=== PATIENT | male | born 1990 | race Caucasian/White ===

== ENCOUNTER 2020-04-15 13:25 | Emergency (ER) | payer MEDICAID, SELFPAY ==
[2020-04-15 13:46] VITALS: BP 152/81; PULSE 97; RESP 16; TEMP 36.6; O2SAT 98; BMI 28.3
--- NOTE | 2020-04-15 14:17 | ED.BACK ---
HPI - Back Pain/Injury General Chief Complaint: Back Pain/Injury Stated Complaint: back & leg pain Time Seen by Provider: 04/15/20 14:17 History of Present Illness HPI Narrative: Patient complains of pain in the left side of his back which is been present for 2 weeks but got worse over the last couple of days, there is no injury, there is no numbness or weakness, no change to bowel or bladder, the pain does radiate to the left lower leg, it is worse with movement, no fever no chills The pain is moderate Related Data Previous Rx's Medication Instructions Recorded cyclobenzaprine 5 mg PO TID PRN #14 tab 04/15/20 ibuprofen 600 mg PO Q6H PRN #20 tab 04/15/20 oxycodone-acetaminophen [Percocet] 1 - 2 tab PO Q6H PRN #14 tab 04/15/20 prednisone 60 mg PO DAILY 4 Days #12 tab 04/15/20 Allergies Allergy/AdvReac Type Severity Reaction Status Date / Time SEASONAL ALLERGIES Allergy Mild RUNNY Uncoded 02/15/20 16:31 STUFF NOSE fragrance Allergy Unknown Uncoded 05/08/19 00:00 seasonal Allergy Unknown Uncoded 05/08/19 00:00 Review of Systems Review of Systems: There is no numbness or weakness no changes to bowel or bladder no neck pain no abdominal pain no chest pain no shortness of breath no rash [facility] Past Medical History Attestation statement: The following information was validated with the patient. [facility] Narrative: Patient has prior history of back pain in the past Social History Social History Advance Directives: No Advance Directives Information Provided: Yes Physical Exam Vital Signs: Vital Signs: Last Vital Signs Temp 97.8 F 04/15/20 13:46 Pulse 97 04/15/20 13:46 Resp 16 04/15/20 13:46 BP 152/81 H 04/15/20 13:46 Pulse Ox 98 04/15/20 13:46 Body Mass Index 28.3 Elevated blood pressure is noted General appearance no acute distress, A&O x3 Head is normocephalic atraumatic Neck is supple Chest is nontender, no respiratory distress The abdomen is soft and nontender The back as left lower lumbar tenderness, skin is normal, no focal bony tenderness and no CVA tenderness Course Course Course Narrative: Patient is treated for musculoskeletal back pain and discharge Discharge Plan Discharge Clinical Impression: Sciatica Qualifiers: Laterality: left Qualified Code(s): M54.32 - Sciatica, left side Patient Disposition: Home, Self-Care Additional Instructions: Follow with primary doctor, chiropractor and physical therapy are often helpful Prescriptions: New oxycodone-acetaminophen [Percocet] 5-325 mg tablet 1 - 2 tab PO Q6H PRN (Reason: pain) Qty: 14 RF: 0 ibuprofen 600 mg tablet 600 mg PO Q6H PRN (Reason: pain) Qty: 20 RF: 0 cyclobenzaprine 5 mg tablet 5 mg PO TID PRN (Reason: muscle spasm) Qty: 14 RF: 0 prednisone 20 mg tablet 60 mg PO DAILY 4 Days Qty: 12 RF: 0 Stand Alone Forms: Work/School Release
--- NOTE | 2020-04-15 14:37 | PC.NURSE ---
MANDI SAENZ ASSESSED AND REVIEWED DC INSTRUCTIONS WITH PT
== END 2020-04-15 14:30 | disposition home or self-care (01) ==
PROVIDERS: Emergency Provider Emergency Medicine; PCP Nurse Practitioner Family
DX: M54.32 Sciatica, left side (principal); M54.5 Low back pain; M79.605 Pain in left leg; M79.604 Pain in right leg; Z79.899 Other long term (current) drug therapy
CPT/HCPCS: 99282; 99283

== ENCOUNTER 2020-05-05 15:59 | Emergency (ER) | payer MEDICAID, SELFPAY ==
[2020-05-05 16:08] VITALS: BP 135/84; PULSE 110; RESP 16; TEMP 37.3; O2SAT 97; BMI 27.1
[2020-05-05] MEDS: Acetaminophen 325 MG TABLET 650 MG PO (16:43)
[2020-05-05] MEDS: Ketorolac Tromethamine 30 MG/ML VIAL IM (16:44)
--- NOTE | 2020-05-05 17:09 | ED.BACK ---
HPI - Back Pain/Injury General Chief Complaint: Back Pain/Injury Stated Complaint: KNEE INJURY Time Seen by Provider: 05/05/20 16:12 Source: patient and die caster Mode of arrival: ambulatory Limitations: language barrier History of Present Illness HPI Narrative: 30-year-old male no significant past medical history, Maori-speaking only presenting to the emergency department with left-sided back pain. He states he has left buttock pain that radiates down his left leg to his knee x2 months. Pain radiates down the posterior leg to the lateral aspect of his left knee. Pain worsened last night. He was seen in the ED on 04/15 and states he was given narcotics, muscle relaxant and pain medication has run out. He denies fall or injury. He works as a [employer] and does heavy lifting. He states he had a previous MRI approximately 3 years ago. He denies fevers, chest pain, shortness of breath, abdominal pain, dysuria, hematuria, testicular pain, scrotal swelling. He denies incontinence. Similar Symptoms Previously: Yes Related Data Previous Rx's Medication Instructions Recorded cyclobenzaprine 5 mg PO TID PRN #14 tab 04/15/20 ibuprofen 600 mg PO Q6H PRN #20 tab 04/15/20 oxycodone-acetaminophen [Percocet] 1 - 2 tab PO Q6H PRN #14 tab 04/15/20 prednisone 60 mg PO DAILY 4 Days #12 tab 04/15/20 cyclobenzaprine 5 mg PO TID PRN 5 Days #15 tab 05/05/20 ibuprofen 600 mg PO Q6H PRN 5 Days #20 tab 05/05/20 Allergies Allergy/AdvReac Type Severity Reaction Status Date / Time SEASONAL ALLERGIES Allergy Mild RUNNY Uncoded 02/15/20 16:31 STUFF NOSE fragrance Allergy Unknown Uncoded 05/08/19 00:00 seasonal Allergy Unknown Uncoded 05/08/19 00:00 Review of Systems Constitutional: Constitutional: Denies fever(s) Eyes: Eyes: Reports no additional eye complaints ENT: Denies dizziness and Denies neck pain Cardiovascular: Cardiovascular: Denies chest pain and Denies dyspnea Respiratory: Respiratory: Denies dyspnea Gastrointestinal: Gastrointestinal: Denies abdominal pain and Denies vomiting Genitourinary: Genitourinary: Denies hematuria, Denies flank pain, Denies scrotal swelling, Denies testicular pain and Denies urinary incontinence Musculoskeletal: Musculoskeletal: Denies deformity and Denies neck pain Neurologic: Denies dizziness and Denies focal weakness Hematologic/Lymphatic: Hematologic/Lymphatic: Denies easy bleeding Allergic/Immunologic: Allergic/Immunologic: Reports no additional allergic/immunologic complaints [facility] Past Medical History Medical History Asthma Surgical History H/O: knee surgery Social History Social History Use of substances other than those prescribed or required for medical reasons: No Advance Directives: No Advance Directives Information Provided: Yes Physical Exam Vital Signs: Vital Signs: Last Vital Signs Temp 99.2 F 05/05/20 16:08 Pulse 110 H 05/05/20 16:08 Resp 16 05/05/20 16:08 BP 135/84 05/05/20 16:08 Pulse Ox 97 05/05/20 16:08 Body Mass Index 27.1 Const: Other: Sitting upright at the edge of the stretcher General: cooperative and awake Orientation/consciousness: patient oriented x3 HENMT: Head: Yes atraumatic Eyes: Pupils: Equal, round and reactive pupils present Neck: Neck: Yes full ROM, Yes trachea midline and Yes supple Resp: Auscultation: clear to auscultation bilaterally Cardio: Rate: regular rate Rhythm: regular rhythm GI: Inspection: Yes normal to inspection and No distended Palpation (GI): Soft to palpation and nontender Back/Spine/Pelvis: Other: No midline tenderness of cervical, thoracic, lumbar tenderness, no CVA tenderness, tenderness to left buttock Skin: Rashes: no rashes Neuro: Other: Normal sensation, normal motor exam, ambulatory with a slow gait, able to flex and extend each joint in his lower extremities, positive left straight leg raise General: patient oriented x3 and no focal motor deficits Cranial nerves: Yes Equal, round and reactive pupils present Motor exam (neuro): 5/5 motor strength present throughout Extrem: Other: Previous scars from prior surgery noted to left knee, no swelling or deformities, no calf tenderness General: Yes normal to inspection MDM - Back Pain/Injury MDM Narrative Medical decision making narrative: 30-year-old male presenting to emergency department with left buttock pain radiating to his left leg Vital stable, nontoxic appearing, hemodynamically stable Pain seems to be sciatic in nature with positive left straight leg raise. He has no midline tenderness to suggest underlying fracture, no trauma noted. He denies IV drug use, afebrile. The concern for spinal epidural abscess. No red flags for cord compression or cauda equina. He has no abdominal tenderness to suggest intra-abdominal pathology. No CVA tenderness to suggest acute pyelonephritis. Denies symptoms to suggest UTI. Denies scrotal swelling or testicular pain. Lower suspicion for disc herniation as his sensation and motor function are intact. Patient was previously seen last month for similar symptoms. Will treat with NSAIDs, muscle relaxant. Discussed return precautions with him. Recommended he follow-up with his primary care doctor and if pain persist would warrant MRI imaging as an outpatient, no emergent indication for imaging at this time. Discharge Plan Discharge Clinical Impression: Sciatica Patient Disposition: Home, Self-Care Instructions: Sciatica (ED) Additional Instructions: Please call your primary care doctor for follow up, call tomorrow to schedule an appointment. Please return to the emergency department if your symptoms worsen, increased pain, difficulty walking, weakness, loss of bladder or bowel function, dizziness, or any other concerning symptoms. We are giving you a muscle relaxant called cyclobenzaprine which may make you drowsy do not drive or operate machinery while taking. Prescriptions: New ibuprofen 600 mg tablet 600 mg PO Q6H PRN (Reason: pain) 5 Days Qty: 20 RF: 0 cyclobenzaprine 5 mg tablet 5 mg PO TID PRN (Reason: muscle spasm) 5 Days Qty: 15 RF: 0 No Action oxycodone-acetaminophen [Percocet] 5-325 mg tablet 1 - 2 tab PO Q6H PRN (Reason: pain) Qty: 14 RF: 0 ibuprofen 600 mg tablet 600 mg PO Q6H PRN (Reason: pain) Qty: 20 RF: 0 cyclobenzaprine 5 mg tablet 5 mg PO TID PRN (Reason: muscle spasm) Qty: 14 RF: 0 prednisone 20 mg tablet 60 mg PO DAILY 4 Days Qty: 12 RF: 0 Interventions: ED Discharge Assessment Last Done: 05/05/20 16:49 Discharge Date/Time: 05/05/20 16:50 Print Language: Maori
== END 2020-05-05 16:50 | disposition home or self-care (01) ==
PROVIDERS: Emergency Provider Internal Medicine; PCP Nurse Practitioner Family
DX: M54.42 Lumbago with sciatica, left side (principal); M54.41 Lumbago with sciatica, right side; Z79.899 Other long term (current) drug therapy
CPT/HCPCS: 96372; 99283; 99284; J1885

== ENCOUNTER 2020-07-12 21:48 | Emergency (ER) | payer MEDICAID, SELFPAY ==
--- NOTE | 2020-07-12 | ECG_ITS ---
Test Reason : CHEST PAIN Blood Pressure : / mmHG Vent. Rate : 086 BPM Atrial Rate : 086 BPM P-R Int : 150 ms QRS Dur : 096 ms QT Int : 366 ms P-R-T Axes : 049 042 052 degrees QTc Int : 437 ms Normal sinus rhythm Minimal voltage criteria for LVH, may be normal variant Borderline ECG No previous ECGs available Referred By: Generic ED Physician Electronically Signed By:FITO CLINE MD
--- NOTE | ~2020-07-12 | XR_ITS ---
EXAMINATION: CHEST 2 VIEWS CLINICAL INFORMATION: CHEST PAIN . COMPARISON: No recent pertinent prior studies are available for comparison. TECHNIQUE: PA and lateral views of the chest obtained. FINDINGS: The lungs are mildly hypoexpanded. No focal infiltrate, effusion, edema, or pneumothorax. Cardiac and mediastinal silhouettes are within normal limits for technique. No acute bony abnormality seen XR/XR chest 2V IMPRESSION: No evidence of acute disease
[2020-07-12 21:57] VITALS: BP 103/70; PULSE 87; RESP 16; TEMP 36.9; O2SAT 99; BMI 27.1
[2020-07-13 00:12] VITALS: BP 152/91; PULSE 58; RESP 16; TEMP 36.8; O2SAT 98
== END 2020-07-13 00:36 | disposition left against medical advice (07) ==
PROVIDERS: Emergency Provider Emergency Medicine
DX: R07.9 Chest pain, unspecified (principal)
CPT/HCPCS: 71046; 93005; 99283

== ENCOUNTER → 2021-02-24 14:25 | Outpatient (BNVA) | payer MEDICAID, SELFPAY | PROVIDERS: PCP Internal Medicine; Referring Provider Internal Medicine; Visit Provider Internal Medicine | DX: R06.02 Shortness of breath (principal); R00.2 Palpitations; R07.2 Precordial pain | CPT/HCPCS: 93005; 99202 ==

== ENCOUNTER → 2021-03-07 08:29 | Outpatient (REF) | payer MEDICAID, SELFPAY ==
--- NOTE | 2021-03-07 08:33 | CA_ITS ---
Transthoracic Echocardiogram Patient (Last, First, Middle): Guille Liao, Gender: Male Date of : 1990 Age: 31 Procedure Date: 03/07/2021 Procedure Type: Transthoracic Echocardiogram Location: OP Height: 182.88 cm Weight: 93.44 kg BSA: 2.16 m2 Heart Rate: bpm BP: 124 / 68 mmHg Shellfish Dredge Operator: Referring MD: Young Baca MD Symptoms: R07.2 - Precordial pain R06.02 SOB Study Quality: Fair/ Definity used to r/o non Compaction ECG Rhythm: Sinus Conclusions: - The left ventricular systolic function is mildly decreased. The visually estimated ejection fraction is between 40-45%. - Diastolic function is normal for age. - Normal right ventricular cavity size and systolic function. Findings Procedure Information Contrast agent, definity, is being given per protocol without apparent complications. Left Ventricle Normal left ventricular cavity size. There is normal left ventricular wall thickness. The left ventricular systolic function is mildly decreased. The visually estimated ejection fraction is between 40-45%. There is no evidence of regional wall motion abnormalities. There is mild global hypokinesis. Diastolic function is normal for age. Right Ventricle Normal right ventricular cavity size and systolic function. Atria The left atrium is normal in size. Aortic Valve There is no aortic valve stenosis. There is no aortic valve regurgitation. Mitral Valve Normal mitral valve structure and function. There is no mitral valve regurgitation. There is no mitral valve stenosis. Pulmonic Valve Normal pulmonic valve structure and function. There is no pulmonic valve regurgitation. Tricuspid Valve Normal tricuspid valve structure and function. There is trace tricuspid valve regurgitation. Tricuspid regurgitation envelope is inadequate for calculation of right ventricular systolic pressure. Normal right atrial pressure. Great Vessels All visible segments of the aorta are normal in size. The visualized portions of the pulmonary artery and branches are normal. Venous The inferior vena cava is normal in size and collapses greater than 50% with inspiration. Pericardium/Pleural There is no evidence of pericardial effusion. Prior Study Comparison No prior study available for comparison. Measurements 2D Linear Measurements IVSd: 1.00 0.6-0.9/0.6-1.0 cm LVIDd: 5.26 3.9-5.3/4.2-5.9 cm LVIDd Index: 2.44 2.4-3.2/2.2-3.1 cm/m2 LVIDs: 3.63 2.0-3.6 cm LVPWd: 1.07 0.7-1.1 cm Ao Root: 3.30 2.1-3.5 cm LA Diam: 4.00 2.7-3.8/3.0-4.0 cm LAIDs Index: 1.85 1.5-2.3 cm/m2 LV Mass: 258.23 67-162/88-224 g LV Mass Index: 119.55 43-95/49-115 g/m2 LVOT Diam: 2.50 3.0+(-)1.3 cm Mitral Valve MV Pk E: 0.58 MV PK A: 0.46 MV Decel Time: 186.00 E/A: 1.30 E'Lateral: 16.10 E'Medial: 8.70 E/E' Med: 6.70 E/E' Lat: 3.60 PHT: 54.00 MVA PHT: 4.07 Decel Mccurtain: 3.13 Aortic Valve AoV Pk Sacha: 0.99 AoV Mn Sacha: 0.67 AoV VTI: 0.23 AoV Pk Grad: 4.00 Aov Mn Grad: 2.00 JIMMIE Cont.VTI: 3.14 LVOT LVOT Pk Sacha: 0.64 LVOT Mn Sacha: 0.45 LVOT VTI: 0.14 LVOT Pk Grad: 2.00 LVOT Mn Grad: 1.00 LVOT Diam: 2.50 LVOT Area: 4.91 Diastolic Function MV Pk E: 0.58 MV Pk A: 0.46 E/A: 1.30 E'Medial: 8.70 E/E' Med: 6.70 E' Laterial: 16.10 E/E' Lat: 3.60 Tricuspid Valve TR Pk Sacha: 1.94 TR Pk Grad: 15.00 Great Vessels Aorta Ao Root-2D: 3.30 2.0-3.7 cm Ao Asc: 2.70 2.1-3.4 cm Pulmonary Valve PV Pk Sacha: 0.98 Peak PV Grad: 4.00 Updated in Other Vendor System with Status of Final Donaldo Sims MD electronically signed on 03/09/2021 1:18:14 PM with status of Final
== END ==
LOC: HO.CARD 08:29
PROVIDERS: Referring Provider Internal Medicine; Visit Provider Nurse Practitioner
DX: R00.2 Palpitations (principal)
CPT/HCPCS: 93306; Q9957

== ENCOUNTER → 2021-05-06 08:19 | Outpatient (REF) | payer MEDICAID, SELFPAY ==
--- NOTE | ~2021-05-06 | NM_ITS ---
EXERCISE MYOCARDIAL PERFUSION STUDY INDICATION: Cardiomyopathy, assess for coronary disease and ischemia TECHNIQUE: The patient was brought in for an exercise perfusion study on 05/06/2021. Patient performed exercise as per Philip protocol and was injected 35 mCi of sestamibi once target heart rate was achieved. Images were obtained using the SPECT gamma camera interlaced with the gating device. Images were obtained in supine position. Resting perfusion study was performed on 05/07/2021. Patient was administered 35 mCi of sestamibi intravenously at rest. Images were then obtained in supine position. Total DLP 99mGy-cm. Images were processed with the software and compared side to side in short axis, horizontal long axis and vertical long axis views. FINDINGS: Raw images were reviewed. The stress perfusion study showed slight reversible defect in the distal part of anterior wall. No significant change with CT attenuation correction. The gated study shows normal LV systolic function with calculated LVEF of 63%. LV cavity is normal in size. The gated study shows normal wall thickening and contraction of segments. Resting study shows no significant perfusion abnormality. With CT attenuation correction, there is a slight perfusion defect in the distal part of anterior wall. Gating at rest reveals normal wall motion with ejection fraction at 50%. The findings are consistent with slight reversible defect in the distal part of anterior wall, likely artifactual. CT/CT cardiolite stress test IMPRESSION: 1. Myocardial perfusion imaging study shows no definitive evidence of any ischemia or infarction. 2. Gated LVEF is 63% during stress and 50% during rest.. 3. Transient ischemic dilatation not present. EKG component of the test reported separately.
--- NOTE | 2021-05-06 08:24 | CA_ITS ---
Acquisition Time: 2021-05-06 08:32:26 Total Exercise Time: 00:09:30 Test Indications: CP, SOB, ABN ECHO Medications: SEE CHART Protocol: [place] Max HR: 171 BPM 90% of Pred: 189 BPM Max BP: 152/070 mmHG Max Work Load: 10.9 METS Exercise stress test with exercise 9 min 30 sec of [place] protocol, without anginal symptoms, without arrythmia, with normotensive response to exercise, without EKG changes meeting criteria for ischemia. Starting at 4 min recovery there is slight downlope if ST in V5 and V6, nonspecific. Nuclear images pending. Test reviewed with Dr Sims. Referred By: Young Baca Overread By: KAITLYN SAMUEL
== END ==
LOC: HO.CARD 08:19
PROVIDERS: Visit Provider Internal Medicine
DX: I42.9 Cardiomyopathy, unspecified (principal)
CPT/HCPCS: 78452; 93017; A9500

== ENCOUNTER → 2021-06-05 13:53 | Outpatient (BNVA) | payer MEDICAID, SELFPAY | PROVIDERS: PCP Internal Medicine; Referring Provider Internal Medicine; Visit Provider Nurse Practitioner Family | DX: R00.2 Palpitations (principal); R07.2 Precordial pain; R06.02 Shortness of breath; I42.9 Cardiomyopathy, unspecified; G47.10 Hypersomnia, unspecified | CPT/HCPCS: 99212 ==

== ENCOUNTER → 2021-07-23 16:10 | Outpatient (REF) | payer MEDICAID, SELFPAY | LOC: HO.SL 16:10 | PROVIDERS: PCP Internal Medicine; Visit Provider Nurse Practitioner Family | DX: G47.10 Hypersomnia, unspecified (principal); R06.02 Shortness of breath; R00.2 Palpitations | CPT/HCPCS: 95806 ==

== ENCOUNTER → 2021-08-22 12:47 | Outpatient (REF) | payer MEDICAID, SELFPAY ==
--- NOTE | 2021-08-22 13:14 | ECG_ITS ---
Hook-up date: 2021-08-22 12:19:00 Duration: 47:59:00 Test Indications: PALPITATIONS Medications: [id number] QRS complexes 1 Ventricular ectopics which represent <1 % of total QRS comp. 10 Supraventricular ectopics which represent <1 % of total QRS comp. * Paced QRS complexs which represent % of total QRS comp. VENTRICULAR ECTOPY 1 Isolated 0 Bigeminal Cycles 0 Couplets 0 Runs 0 Beats in Runs * Beats LONGEST at * BPM at :: -- * Beats FASTEST at * BPM at :: -- SUPRAVENTRICULAR ECTOPY 10 Isolated 0 Couplets 0 Runs 0 Beats in Runs * Beats LONGEST at * BPM at :: -- * Beats FASTEST at * BPM at :: -- HEART RATES 65 MIN at 05:48:30 2021-08-23 91 AVG 157 MAX at 20:50:02 2021-08-23 LONGEST RR 1.0320 secs at 06:08:52 2021-08-24 S-T LEVELS Channel 1 - 128 mm at 12:19:00 2021-08-22 - 128 mm at 12:19:00 2021-08-22 Channel 2 - 128 mm at 12:19:00 2021-08-22 - 128 mm at 12:19:00 2021-08-22 Channel 3 - 128 mm at 03:13:81 -- - 128 mm at 03:13:81 Underlying rhythm is sinus; Average ventricular rate 91/min; range 65-157/min; Sinus tachycardia noted, but no other tachy-arrhythmias; No significant bradycardia or pauses; Patient did not report any symptoms in the diary Referred By: Babs Rosales Overread By: REJI FAIRBANKS
== END ==
LOC: HO.CARD 12:47
PROVIDERS: Visit Provider Internal Medicine
DX: R00.2 Palpitations (principal)
CPT/HCPCS: 93225; 93226

== ENCOUNTER 2022-05-08 10:04 | Emergency (ER) | payer MEDICAID, SELFPAY ==
--- NOTE | ~2022-05-08 | XR_ITS ---
EXAMINATION: XR LUMBOSACRAL SPINE CLINICAL INFORMATION: Heavy lifting hearing a pop in the back. Pain. COMPARISON: MRI 09/17/2016 TECHNIQUE: Three views of the lumbosacral spine. FINDINGS: No fracture or subluxation. Vertebral body height and alignment maintained. Disc space narrowing at L4-L5 with small endplate osteophytes. Additional endplate osteophytes are seen throughout. The sacroiliac joints are symmetric. The visualized sacrum is intact. Normal bowel gas pattern. Mild degenerative change of both hips. XR/XR lumbar spine 2-3V IMPRESSION: No acute abnormality. Mild multilevel degenerative changes of the lumbar spine.
[2022-05-08 10:14] VITALS: BP 115/62; PULSE 81; RESP 16; TEMP 36.2; O2SAT 98; BMI 27.1
[2022-05-08 10:36] VITALS: BP 134/89; PULSE 79; RESP 14; TEMP 36.4; O2SAT 100
--- NOTE | 2022-05-08 11:01 | ED_ITS ---
HPI - Back Pain/Injury General Chief Complaint: Back Pain/Injury Stated Complaint: Back Pain No Injury Time Seen by Provider: 05/08/22 10:54 Source: patient Mode of arrival: ambulatory Limitations: no limitations History of Present Illness HPI Narrative: Patient is a 32 year old male with a PMH of cardiomyopathy presents to the Ed with complains of lower back pain ongoing for 2 days now. 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 Patient reports he was able to ambulate although he had moderate pain down his back. Patient states that he has been using heating pads for the pain but has not provided any relief thus far. Patient denies using any OTC oral pain medications and states that he feels the pain radiate to his right leg. Patent denies any urinary incontinence, loss of consciousness, dizziness, chest pain, SOB, fall, any other trauma to any other part of his body. Patient denies any any loss of sensations or swelling of lower extremities. Patient denies any other issues, complains or concerns at this time. MD elicited complaint: back pain and back injury Onset (ago): day(s) (2 days) Timing: constant Severity: moderate Similar Symptoms Previously: No Quality: aching Location: lumbar spine and right lower back Radiation: none and right upper leg Exacerbating factors: sitting upright Relieving factors: none Context: while lifting Associated symptoms: denies other symptoms Treatments prior to arrival: heat therapy Work related injury: Yes Related Data Previous Rx's Medication Instructions Recorded cyclobenzaprine 5 mg tablet 5 mg PO TID PRN muscle spasm #14 04/15/20 tabs ibuprofen 600 mg tablet 600 mg PO Q6H PRN pain #20 tabs 04/15/20 metoprolol succinate 25 mg 25 mg PO DAILY #30 tabs 06/05/21 tablet,extended release 24 hr cyclobenzaprine 10 mg tablet 10 mg PO Q8H PRN Muscle spasm #14 05/08/22 tabs naproxen 500 mg tablet 500 mg PO BID PRN pain #10 tabs 05/08/22 Allergies Allergy/AdvReac Type Severity Reaction Status Date / Time SEASONAL ALLERGIES Allergy Mild RUNNY Uncoded 05/08/22 10:16 STUFF NOSE fragrance Allergy Unknown Unknown Uncoded 05/08/22 10:16 Review of Systems Review of Systems: Constitutional : + Lifting heavy box at work, No Weight loss, No Fever, No Chills, ENT/Mouth : No Hearing loss, No Ear Pain, No Nasal Congestion, No Sinus Pain, No Hoarseness, No sore throat, No Rhinorrhea, No Swallowing Difficulty Cardiovascular : No Chest Pain, No SOB Respiratory : No Cough, No Dyspnea Gastrointestinal : No Nausea, No Vomiting, No Diarrhea, No abdominal Pain, No Hematochezia, No Melena Genitourinary : No Dysuria, No Urinary Frequency, No Hematuria, No Urinary or Bowel Incontinence/retention Musculoskeletal : + Back pain, No neck pain, No joint stiffness, No joint swelling Skin : No Skin Lesions, No rash or signs of infection Neuro : No Weakness, No radiation, No Numbness, No Paresthesias, No headache, no loss of bowel or bladder incontinence, no saddle anesthesia Denies history of IV drug usage. Yes all other systems are reviewed and are negative PMFSH Past Medical History Attestation statement: The following information was validated with the patient. Source: old records reviewed and nursing notes reviewed Medical History Asthma Surgical History H/O: knee surgery Family History Family History Unknown No significant family history Social History Social History Alcohol intake: never Patient Tobacco Use Status: Never used Tobacco Advance Directives: No Advance Directives Information Provided: No Physical Exam Vital Signs: Vital Signs: Last Vital Signs Temp 97.6 F 05/08/22 10:36 Pulse 79 05/08/22 10:36 Resp 14 05/08/22 10:36 BP 134/89 05/08/22 10:36 Pulse Ox 100 05/08/22 10:36 O2 Del Method 05/08/22 10:36 BMI result Body Mass Index 27.1 vital signs have been reviewed as normal and appeared to be correct. Blood pressure normal. Heart rate normal. Respiration rate normal. Temperature normal. Oxygen saturation normal. Appearance: Alert. Oriented X3. No acute distress. Head: Normal external exam. Normocephalic. Atraumatic. Eyes: PERRLA. EOMI. Conjunctiva and sclera normal. Eyelids normal. ENT: EAC normal. TM's Normal. Pharynx normal. Uvula midline. Moist mucous membranes. No trismus noted. No drooling noted. No muffled voice noted. Neck: Normal inspection. Neck supple. FROM. Thyroid Normal. No meningeal signs. No neck mass noted. CVS: Normal heart rate and rhythm. Heart sound normal. No murmurs noted. Respiratory: No respiratory distress. Painless inspiration. Breath sounds normal. No wheezes/rales/rhonchi noted. Chest nontender. No accessory muscle usage noted or decreased air movement noted. Abdomen: Soft and nontender. Bowel sounds normal in all 4 quadrants. No distention noted No visible injury noted. Back: No CVA tenderness. No obvious deformities, or edema. Mild para-spinal muscular tenderness from lumbar region to coccyx. Limited ROM in back. 5/5 strength hip extension/flexion, abduction, adduction. Mild Lumbar pain with hip flexion against resistance. Straight leg raise test negative on right; Straight leg raise test negative on left; Reflexes normal ankle and knee bilaterally; EHL motor strength normal bilaterally. No rashes/lesion/induration/fluctuance or signs infection noted. Skin: Skin warm and dry. Normal skin color. Normal skin turgor. No rashes/lesions/lacerations noted. Extremities: No lower extremity edema. Extremities exhibit normal range of motion. Extremities nontender. Neuro: Oriented X 3. No motor deficit. No sensory deficit. Patient has a normal steady gait. Course Course Course Narrative: Patient is a 32 year old male with a PMH of cardiomyopathy presents to the Ed with complains of lower back pain ongoing for 2 days now after lifting a heavy box at work. Patient reports he was able to ambulate although he had moderate pain down his back. Patient denies using any OTC oral pain medications and states that he feels the pain radiate to his right leg. Patent denies any urinary incontinence, loss of consciousness, dizziness, chest pain, SOB, fall, any other trauma to any other part of his body, denies any any loss of sensations or swelling of lower extremities. On physical exam, patient was alert and oriented and in no acute distress. There was mild para-spinal muscular tenderness from lumbar region to coccyx upon palpation with limited ROM in back. No CVA tenderness. No obvious deformities, or edema. 5/5 strength hip extension/flexion, abduction, adduction. Mild Lumbar pain with hip flexion against resistance. Straight leg raise test negative on right; Straight leg raise test negative on left; Reflexes normal ankle and knee bilaterally; EHL motor strength normal bilaterally. No rashes/lesion/induration/fluctuance or signs infection noted. Pt c likely muscular pain, but could be herniated disc. Neuro exam shows no deficits. Not c/w AAA/epidural abscess/dissection.No high risk Hx (Incont, f ever, immunosupp, recent surgery/LP, coag, signif trauma, wt loss, puls mass, hx/o Ca, TB, or IVDU) to warrant MRI/CT today. Not c/w Pyelo/UTI/kidney stone/spinal fx. Not cauda equina syndrome. Lumbar spine Xray: FINDINGS: No fracture or subluxation. Vertebral body height and alignment maintained. Disc space narrowing at L4-L5 with small endplate osteophytes. Additional endplate osteophytes are seen throughout. The sacroiliac joints are symmetric. The visualized sacrum is intact. Normal bowel gas pattern. Mild degenerative change of both hips. XR/XR lumbar spine 2-3V IMPRESSION: No acute abnormality. Mild multilevel degenerative changes of the lumbar spine. Plan: Naproxen 500mg PO bid prn for pain. Cyclobenzaprine 10mg PO Q8h prn. Along with instructions to follow-up with PCP / were connection to return if any new or worsening symptoms. Patient understands agrees with this plan. Medications Administered Discontinued Medications Generic Name Dose Route Start Last Admin Trade Name Freq PRN Reason Stop Dose Admin Cyclobenzaprine HCl 10 mg 05/08/22 11:26 05/08/22 11:32 Cyclobenzaprine Hcl 10 Mg Tablet PO 05/08/22 11:27 10 mg ONCE ONE Administration Lidocaine 1 patch 05/08/22 11:26 05/08/22 11:33 Lidocaine 4 % Patch Adh..Patch TRANSDERMA 05/08/22 11:27 1 patch ONCE ONE Administration Protocol Naproxen 500 mg 05/08/22 11:26 05/08/22 11:33 Naproxen 500 Mg Tablet PO 05/08/22 11:27 500 mg ONCE ONE Administration Discharge Plan Discharge Clinical Impression: Strain of lumbar region, Work related injury Patient Disposition: Home, Self-Care Instructions: Low Back Strain (ED), Return to Work Instructions (ED), Lower Back Exercises (ED) Prescriptions: New cyclobenzaprine 10 mg tablet 10 mg PO Q8H PRN (Reason: Muscle spasm) Qty: 14 0RF naproxen 500 mg tablet 500 mg PO BID PRN (Reason: pain) Qty: 10 0RF No Action ibuprofen 600 mg tablet 600 mg PO Q6H PRN (Reason: pain) Qty: 20 0RF cyclobenzaprine 5 mg tablet 5 mg PO TID PRN (Reason: muscle spasm) Qty: 14 0RF metoprolol succinate 25 mg tablet extended release 24 hr 25 mg PO DAILY Qty: 30 5RF Referrals: Physician,None [Primary Care Provider] - (your pcp and work connection for your job ) Stand Alone Forms: Work/School Release Interventions: ED Discharge Assessment Last Done: 05/08/22 13:01 Discharge Date/Time: 05/08/22 13:01
[2022-05-08] MEDS: Cyclobenzaprine HCl 10 MG TABLET PO (11:32)
[2022-05-08] MEDS: NaPROXEN 500 MG TABLET PO (11:33)
[2022-05-08] MEDS: Lidocaine 4 % Patch ADH..PATCH 1 PATCH TRANSDERMA (11:33)
== END 2022-05-08 13:01 | disposition home or self-care (01) ==
PROVIDERS: Emergency Provider Emergency Medicine Emergency Medical Services
DX: S39.012A Strain of muscle, fascia and tendon of lower back, initial encounter (principal); Z79.899 Other long term (current) drug therapy; X50.0XXA Overexertion from strenuous movement or load, initial encounter; X50.3XXA Overexertion from repetitive movements, initial encounter; Y93.9 Activity, unspecified; Y92.9 Unspecified place or not applicable; Y99.0 Civilian activity done for income or pay
CPT/HCPCS: 72100; 99283

== ENCOUNTER 2022-06-26 23:40 | Emergency (ER) | payer MEDICAID, SELFPAY ==
--- NOTE | ~2022-06-26 | XR_ITS ---
EXAMINATION: XR CHEST CLINICAL INFORMATION: Chest pain COMPARISON: 07/12/2020 TECHNIQUE: Frontal view of the chest was obtained. FINDINGS: The lungs are hypoinflated and appear clear without focal consolidation. No evidence of pneumothorax, pleural effusion, or pulmonary edema. The cardiomediastinal contour is unremarkable. No acute osseous findings are seen. XR/XR chest 1V IMPRESSION: Low lung volumes without acute findings.
[2022-06-26 23:42] VITALS: BP 115/67; PULSE 75; RESP 16; TEMP 36.7; O2SAT 97; BMI 26.4
--- NOTE | 2022-06-26 23:46 | ECG_ITS ---
Test Reason : CHEST PAIN Blood Pressure : / mmHG Vent. Rate : 070 BPM Atrial Rate : 070 BPM P-R Int : 186 ms QRS Dur : 104 ms QT Int : 382 ms P-R-T Axes : 050 062 056 degrees QTc Int : 412 ms Normal sinus rhythm Normal ECG No significant changes when compared with the previous EKG of 12 jul 2020 Referred By: Generic ED Physician Electronically Signed By:REJI FAIRBANKS
[2022-06-27 00:08] LABS: MANUAL DIFF FLAG NO
[2022-06-27 00:10] LABS: Basophils Percent Auto 0.3 % (0-2); Eosinophils Absolute Auto 0.2 X10*3/uL (0.0-0.4); Eosinophils Percent Auto 2.3 % (0-4); Hematocrit 41.3 % (42.0-52.0); Hemoglobin 13.8 g/dl (14.0-18.0); Imm Gran Abs Auto 0.02 X10*3/uL (0.00-0.03); Imm Gran Pct Auto 0.2 % (0.0-0.4); Lymphocytes Percent Auto 31.9 % (20-40); Mean Corpuscular HGB Conc 33.4 g/dl (31.0-36.0); Mean Corpuscular Hemoglobin 27.2 pg (27.0-33.0); Mean Corpuscular Volume 81.5 fL (80.0-98.0); Mean Platelet Volume 10.6 fL (9.4-12.4); Monocytes Absolute Auto 0.7 X10*3/uL (0.1-1.2); Monocytes Percent Auto 7.6 % (2-11); Neutrophils Absolute Auto 5.5 x10*3/uL (2.0-8.3); Neutrophils Percent Auto 57.7 % (45-73); Platelet Count 292 X10*3/uL (160-400); Red Blood Count 5.07 X10*6/uL (4.60-5.80); Red Cell Distribution Width 13.3 % (11.0-16.0); White Blood Count 9.5 X10*3/uL (4.8-10.8)
--- NOTE | 2022-06-27 00:19 | ED_ITS ---
HPI - Chest Pain General Chief Complaint: Chest Pain Stated Complaint: chest pain, left arm numb Time Seen by Provider: 06/27/22 00:19 Source: patient Mode of arrival: ambulatory Limitations: language barrier History of Present Illness HPI narrative: 32-year-old male presents for 3 days of left-sided chest pain radiating to his left arm. MD complaint: chest discomfort Onset (ago): day(s) (Three) Timing of current episode: constant Prior episodes: No Onset: during rest Pain location: left chest Pain radiation: left arm Severity: moderate Pain scale (0-10): 5 Quality: tightness and aching Relieving factors: nothing Exacerbating factors: palpation and movement Treatment prior to arrival: none Risk Factors Coronary artery disease risk factors: none Thoracic aortic dissection risk factors: none Related Data Previous Rx's Medication Instructions Recorded cyclobenzaprine 5 mg tablet 5 mg PO TID PRN muscle spasm #14 04/15/20 tabs ibuprofen 600 mg tablet 600 mg PO Q6H PRN pain #20 tabs 04/15/20 cyclobenzaprine 10 mg tablet 10 mg PO Q8H PRN Muscle spasm #14 05/08/22 tabs naproxen 500 mg tablet 500 mg PO BID PRN pain #10 tabs 05/08/22 metoprolol succinate 25 mg 25 mg PO DAILY #90 tabs 06/11/22 tablet,extended release 24 hr Allergies Allergy/AdvReac Type Severity Reaction Status Date / Time SEASONAL ALLERGIES Allergy Mild RUNNY Uncoded 06/26/22 23:46 STUFF NOSE fragrance Allergy Unknown Unknown Uncoded 06/26/22 23:46 Review of Systems Review of Systems: Constitutional: No Fever, No Chills Cardiovascular: Positive left chest wall pressure, No SOB Respiratory: No Cough, No Dyspnea Gastrointestinal: No Nausea, No Vomiting, No Diarrhea, No abdominal Pain Genitourinary: No Dysuria, No Hematuria Musculoskeletal: positive left arm pain, No Myalgias, No Joint Swelling Skin: No Skin lacerations, No rash Neuro: No Weakness, No Numbness, No Paresthesias, No Dizziness, No Headache Yes all other systems are reviewed and are negative [facility] Past Medical History Attestation statement: The following information was validated with the patient. Source: old records reviewed Medical History Asthma Surgical History H/O: knee surgery Family History Family History Unknown No significant family history Social History Social History Alcohol intake: never Patient Tobacco Use Status: Never used Tobacco Advance Directives: No Advance Directives Information Provided: Yes Physical Exam Vital Signs: Vital Signs: Last Vital Signs Temp 98.0 F 06/26/22 23:42 Pulse 75 06/26/22 23:42 Resp 16 06/26/22 23:42 BP 115/67 06/26/22 23:42 Pulse Ox 97 06/26/22 23:42 O2 Del Method 06/26/22 23:42 BMI result Body Mass Index 26.4 Appearance: Alert. Oriented X3. No acute distress. Eyes: Pupils equal, round and reactive to light. ENT: Pharynx normal. Neck: Normal inspection. Neck supple. CVS: Normal heart rate and rhythm. Reproducible chest pain to palpation to the left chest wall. Respiratory: No respiratory distress. Breath sounds normal. Abdomen: Soft and nontender. Skin: Skin warm and dry. Normal skin color. Normal skin turgor. Extremities: No lower extremity edema. Moves all extremities against resistance. Gait well-balanced well coordinated Neuro: No motor deficit. No sensory deficit. Cranial nerves 2-12 intact. Course Course Course Narrative: 32-year-old male presents with left chest wall and left arm pain and numbness that started 3 days ago. Patient does have a history of palpitations and has been followed by Dr. Baca. Patient does not report any physical strenuous activity or trauma. Patient denies fevers, chills, shortness of breath, and diaphoresis. ACS workup labs are pending, will order chest x-ray. Physical exam indicates reproducible left chest wall pain, lung sounds clear to auscultation all lobes. No murmurs gallops or rubs. Regular rhythm. No a bdominal pain, negative Sanchez's and McBurney's. No pulsatile masses noted. Full range of motion to all extremities with 5/5 strength. Wells PE score is 0. 00:39 CBC and chemistries are within normal limits. Troponins and COVID tests are pending. Chest x-ray is pending at this time. EKG normal sinus, no indication of ST elevations or depressions. No ischemia. 00:59 troponins are negative. Low likelihood of ACS at this time. Will give Toradol for pain management at this time. COVID test is pending. I did discuss the findings with the patient and patient's family. Plan of care is to discharge home. Will call them with their COVID influenza RSV results. 01:25 COVID influenza RSV negative. I did tell patient prior to them leaving this facility. Medications Administered Discontinued Medications Generic Name Dose Route Start Last Admin Trade Name Freq PRN Reason Stop Dose Admin Ketorolac Tromethamine 60 mg 06/27/22 00:57 06/27/22 01:21 Ketorolac Tromethamine 60 Mg/2 Ml Vial IM 06/27/22 00:58 60 mg ONCE ONE Administration Medical Decision Making Differential Diagnosis Differential Diagnoses: The differential diagnosis associated with the presentation includes Muscular skeletal strain, ACS, pneumonia, COVID, RSV Lab Data [facility] Lab Attestation statement: I reviewed the patient's lab results. 06/27/22 00:04 06/27/22 00:04 Labs: Lab Results 06/27/22 06/27/22 06/27/22 Range/Units 00:04 00:04 00:04 WBC 9.5 (4.8-10.8) X10*3/uL RBC 5.07 (4.60-5.80) X10*6/uL Hgb 13.8 L (14.0-18.0) g/dl Hct 41.3 L (42.0-52.0) % MCV 81.5 (80.0-98.0) fL MCH 27.2 (27.0-33.0) pg MCHC 33.4 (31.0-36.0) g/dl RDW 13.3 (11.0-16.0) % Plt Count 292 (160-400) X10*3/uL MPV 10.6 (9.4-12.4) fL Immature Gran % (Auto) 0.2 (0.0-0.4) % Neut % (Auto) 57.7 (45-73) % Lymph % (Auto) 31.9 (20-40) % Peach % (Auto) 7.6 (2-11) % Eos % (Auto) 2.3 (0-4) % Baso % (Auto) 0.3 (0-2) % Lymph # (Auto) 3.0 (1.2-4.9) X10*3/uL Peach # (Auto) 0.7 (0.1-1.2) X10*3/uL Eos # (Auto) 0.2 (0.0-0.4) X10*3/uL Baso # (Auto) 0.0 (0.0-0.2) X10*3/uL Abs Immat Gran (auto) 0.02 (0.00-0.03) X10*3/uL Absolute Neuts (auto) 5.5 (2.0-8.3) x10*3/uL Absolute Nucleated RBC 0.000 (0.0-0.012) X10*3/uL Nucleated RBC % (auto) 0.0 (0.0-0.2) /100WBC Sodium 140 (135-145) mmol/L Potassium 3.7 (3.3-5.1) mmol/L Chloride 105 (96-108) mmol/L Carbon Dioxide 24 (22-29) mmol/L Anion Gap 15 (12-20) BUN 11 (9-16) mg/dL Creatinine 0.98 (0.5-1.4) mg/dL Estim Creat Clear Calc 122.2 Estimated GFR > 60 Random Glucose 95 (60-115) mg/dL Calcium 9.7 (8.4-10.2) mg/dL Troponin I High Sens < 3.5 (<3.5-35.0) ng/L Influenza Type A (PCR) (Negative) Influenza Type B (PCR) (Negative) RSV RNA Qual (PCR) (Negative) SARS-CoV-2 RNA (RT-PCR) (Negative) 06/27/22 Range/Units 00:28 WBC (4.8-10.8) X10*3/uL RBC (4.60-5.80) X10*6/uL Hgb (14.0-18.0) g/dl Hct (42.0-52.0) % MCV (80.0-98.0) fL MCH (27.0-33.0) pg MCHC (31.0-36.0) g/dl RDW (11.0-16.0) % Plt Count (160-400) X10*3/uL MPV (9.4-12.4) fL Immature Gran % (Auto) (0.0-0.4) % Neut % (Auto) (45-73) % Lymph % (Auto) (20-40) % Peach % (Auto) (2-11) % Eos % (Auto) (0-4) % Baso % (Auto) (0-2) % Lymph # (Auto) (1.2-4.9) X10*3/uL Peach # (Auto) (0.1-1.2) X10*3/uL Eos # (Auto) (0.0-0.4) X10*3/uL Baso # (Auto) (0.0-0.2) X10*3/uL Abs Immat Gran (auto) (0.00-0.03) X10*3/uL Absolute Neuts (auto) (2.0-8.3) x10*3/uL Absolute Nucleated RBC (0.0-0.012) X10*3/uL Nucleated RBC % (auto) (0.0-0.2) /100WBC Sodium (135-145) mmol/L Potassium (3.3-5.1) mmol/L Chloride (96-108) mmol/L Carbon Dioxide (22-29) mmol/L Anion Gap (12-20) BUN (9-16) mg/dL Creatinine (0.5-1.4) mg/dL Estim Creat Clear Calc Estimated GFR Random Glucose (60-115) mg/dL Calcium (8.4-10.2) mg/dL Troponin I High Sens (<3.5-35.0) ng/L Influenza Type A (PCR) NEGATIVE (Negative) Influenza Type B (PCR) NEGATIVE (Negative) RSV RNA Qual (PCR) NEGATIVE (Negative) SARS-CoV-2 RNA (RT-PCR) NEGATIVE (Negative) Independent Interpretation I performed an independent interpretation of an: EKG and Plain X-Ray Interpretation: Normal sinus rhythm, ventricular rate 70 beats per minute, TX 186, QR are 104, QT 382, QTC 412 Radiology Impression Discussion of test interpretation with radiology: I have reviewed the radiologist's reading. Independent Historian Clinical information obtained from an independent historian. History obtained from or confirmed by: Spouse External Record Review External record reviewed: Outpatient record and Prior outpatient labs Scores Heart Score History: -0- slightly suspicious ECG: -0- normal Age: -0- < or = 45 Risk factory: -0- no risk factors known Troponin: -0- < or = normal limit Score: 0 Risk: 1.7% Discharge Plan Discharge Clinical Impression: Atypical chest pain Patient Disposition: Home, Self-Care Instructions: Noncardiac Chest Pain (ED), Chest Wall Pain (ED) Additional Instructions: You were evaluated for 3 days of left-sided chest pain with arm radiation. Your cardiac enzymes are negative, your EKG is normal sinus rhythm. Your lab values are normal. Your chest x-ray is negative. Please follow-up with your primary care physician as needed. Please follow-up with your garbage truck helper as scheduled or as needed. COVID influenza RSV are negative. Thank you for choosing this emergency department for evaluation. Please follow-up with primary care physician as needed. Return to the emergency department for any new, concerning, or worsening symptoms. Prescriptions: No Action metoprolol succinate 25 mg tablet extended release 24 hr 25 mg PO DAILY Qty: 90 0RF Rx Instructions: Please call to schedule cardiology appt for 2022 to continue receiving refills. [phone] Thank you ibuprofen 600 mg tablet 600 mg PO Q6H PRN (Reason: pain) Qty: 20 0RF cyclobenzaprine 5 mg tablet 5 mg PO TID PRN (Reason: muscle spasm) Qty: 14 0RF cyclobenzaprine 10 mg tablet 10 mg PO Q8H PRN (Reason: Muscle spasm) Qty: 14 0RF naproxen 500 mg tablet 500 mg PO BID PRN (Reason: pain) Qty: 10 0RF Stand Alone Forms: Work/School Release
[2022-06-27 00:30] LABS: Anion Gap 15 (12-20); Blood Urea Nitrogen 11 mg/dL (9-16); Calcium 9.7 mg/dL (8.4-10.2); Carbon Dioxide 24 mmol/L (22-29); Chloride 105 mmol/L (96-108); Creatinine Clr Calc Pharmacy 122.2; Estimated Glomerular Filt Rate > 60; Glucose Random 95 mg/dL (60-115); Potassium 3.7 mmol/L (3.3-5.1); Sodium 140 mmol/L (135-145)
[2022-06-27 00:45] LABS: Troponin-I High Sensitivity < 3.5 ng/L (<3.5-35.0)
[2022-06-27 01:11] LABS: Influenza A PCR NEGATIVE (Negative); Influenza B PCR NEGATIVE (Negative); Resp Syncy Virus RNA Qual PCR NEGATIVE (Negative); SARS COV2 PCR INHOUSE NEGATIVE (Negative)
[2022-06-27] MEDS: Ketorolac Tromethamine 60 MG/2 ML VIAL IM (01:21)
== END 2022-06-27 01:25 | disposition home or self-care (01) ==
PROVIDERS: Nurse Practitioner Family; Emergency Provider Internal Medicine
DX: R07.89 Other chest pain (principal); Z20.822 Contact with and (suspected) exposure to COVID-19; Z20.828 Contact with and (suspected) exposure to other viral communicable diseases
CPT/HCPCS: 0241U; 36415; 71045; 80048; 84484; 85025; 93005; 96372; 99283; 99284; J1885

== ENCOUNTER 2022-07-08 09:47 | Outpatient (REF) | payer MEDICAID, SELFPAY | END 2022-07-08 09:48 | disposition home or self-care (01) | LOC: HO.HOSX 09:47 | PROVIDERS: Visit Provider Physician Assistant | DX: Z13.89 Encounter for screening for other disorder (principal) ==

== ENCOUNTER 2022-07-15 16:53 | Outpatient (REF) | payer MEDICAID, SELFPAY | END 2022-07-15 16:54 | disposition home or self-care (01) | LOC: HO.HOSX 16:53 | PROVIDERS: Visit Provider Physician Assistant | DX: Z13.89 Encounter for screening for other disorder (principal) ==

== ENCOUNTER 2023-03-02 09:43 | Outpatient (REF) | payer MEDICAID, SELFPAY | END 2023-03-02 09:44 | disposition home or self-care (01) | LOC: HO.HOSX 09:43 | PROVIDERS: Visit Provider Orthopaedic Surgery | DX: M25.552 Pain in left hip (principal); M25.551 Pain in right hip | CPT/HCPCS: 73501; 73502; 99202 ==

== ENCOUNTER 2023-03-02 11:31 | Outpatient (AMB) | payer MEDICAID, SELFPAY ==
--- NOTE | 2023-03-02 12:12 | MHC.OFFVIS ---
Intake Vital Signs 03/02/23 12:13 Height 6 ft 1 in Weight 200 lb BMI 26.4 Intake Visit Reasons: New prob/ bilat hip pain Intake Note: Guille is a 33 year old male who presents today as a new patient with complaint of bilateral hip pains, left greater than right. He describes his pains as sharp and severe in nature. Most of the pain is located within his left groin. He states that his symptoms have gotten worse over the last few years in spite of continued non operative treatments. He has tried physical therapy which aggravated his pain. He has also tried Tylenol and anti-inflammatory medicines which gave him only mild relief. Allergies SEASONAL ALLERGIES Allergy (Mild, Uncoded 03/02/23 12:14) RUNNY STUFF NOSE fragrance Allergy (Unknown, Uncoded 03/02/23 12:14) Unknown Medication List - Last Reconciled 03/02/23 by Shiv Madera MD cyclobenzaprine 5 mg PO TID PRN cyclobenzaprine 10 mg PO Q8H PRN ibuprofen 600 mg PO Q6H PRN metoprolol succinate ER 25 mg PO DAILY naproxen 500 mg PO BID PRN PFSH Medical History Asthma Surgical History H/O: knee surgery Family History Unknown No significant family history Social History Alcohol intake: never Patient Tobacco Use Status: Never used Tobacco Physical Exam Vital Signs: BMI result Body Mass Index 26.4 Const Other: Well-nourished well-developed very friendly male awake alert and oriented x3 in no acute distress Extrem Other: Bilateral lower extremity examination shows good capillary refill, no skin lesions noted, normal sensation light touch Left hip examination shows decreased range of motion when compared to his right hip, pain with range of motion, no tenderness over his bursa Results Reviewed Results Reviewed: X-rays of the patient's bilateral hips taken today show mild to moderate joint space narrowing, no acute bony abnormalities Assessment & Plan Assessment & Plan (1) Left hip pain: Code(s): M25.552 - Pain in left hip Plan: Mr. 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 Thus, I will send the patient for an MRI for further evaluation. I will see him back once the MRI is completed to discuss the findings and treatment options. I did give him a prescription for a Medrol Dosepak to help with his pain in the meantime. I spent 22 minutes in reviewing the patient's records and imaging studies, seeing the patient and documenting in the medical record. (2) Right hip pain: Code(s): M25.551 - Pain in right hip Orders: Orders XR hip LT min 2V Today M25.552 - Pain in left hip XR hip RT 1V Today M25.551 - Pain in right hip MR hip LT wo con Today M25.552 - Pain in left hip Medications: New prednisolone 5 mg PO DAILY 21 ea 0RF Coding Level of Care Code New Pt Level 2 (23190) Diagnoses Left hip pain M25.552 Right hip pain M25.551
[2023-03-02 12:13] VITALS: BMI 26.4
== END 2023-03-02 12:45 | disposition home or self-care (01) ==
PROVIDERS: Visit Provider Orthopaedic Surgery
DX: M25.552 Pain in left hip (principal); M25.551 Pain in right hip
CPT/HCPCS: 99202